=== PATIENT | male | born 1980 | race Caucasian/White ===

== ENCOUNTER 2017-01-20 07:01 | Day surgery (SDC) | payer OTHER ==
[~2017-01-20] VITALS: Ht 180.3 cm; Wt 73.1 kg
[~2017-01-20 07:01] MED LIST: HYDR2TAB29 PO; METH750T2 PO; MORP30CP12 PO; MORP30TA81 PO
[2017-01-20 07:18] VITALS: BP 132/88
[2017-01-20] MEDS ORDERED: LACTATED RINGERS 1,000 ML IV SCH (07:20)
[2017-01-20 08:02] LABS: ASPARTATE AMINO TRANSFERASE 19 U/L (15-37); BLOOD UREA NITROGEN 10 mg/dL (7-18)
[2017-01-20 08:10] LABS: HEMATOCRIT 49.6 % (39.2-51.8); HEMOGLOBIN 16.6 g/dL (13.7-18.0); WHITE BLOOD COUNT 5.9 x10^3/uL (3.4-10)
[2017-01-20] MEDS ORDERED: FENTANYL PF 100 MCG/2ML ONE ×3 (08:21→09:55)
[2017-01-20] MEDS ORDERED: MIDAZOLAM 1 MG/ML, 2ML ONE ×2 (08:21)
[2017-01-20] MEDS ORDERED: EPINEPHRINE 1 MG/ML, 1ML ONE (08:27)
[2017-01-20] MEDS ORDERED: BUPIVACAINE/PF 0.5% ONE (08:27)
[2017-01-20] MEDS ORDERED: METOCLOPRAMIDE 5 MG/ML, 2ML ONE (08:35)
[2017-01-20] MEDS ORDERED: PROPOFOL 10 MG/ML, 20ML ONE (08:35)
[2017-01-20] MEDS ORDERED: KETOROLAC 30 MG/1 ML ONE (08:35)
[2017-01-20] MEDS ORDERED: ROCURONIUM 10 MG/ML ONE (08:35)
[2017-01-20] MEDS ORDERED: ONDANSETRON 2MG/ML, 2ML ONE (08:35)
[2017-01-20] MEDS ORDERED: DEXAMETHASONE 4 MG/ML, 1ML ONE (08:35)
[2017-01-20] MEDS ORDERED: CEFOTETAN 2 GM ONE (08:35)
[2017-01-20] MEDS ORDERED: OXYcodone 5 MG/5 ML ORAL.SOL UDC PO PRN (09:00)
[2017-01-20] MEDS ORDERED: hydrALAzine 20 MG/ML, 1ML IV PRN (09:00)
[2017-01-20] MEDS ORDERED: HYDROmorphone 1 MG/ML, 1ML IV PRN (09:00)
[2017-01-20] MEDS ORDERED: LABETALOL 5MG/ML, 20ML IV PRN (09:00)
[2017-01-20] MEDS ORDERED: ONDANSETRON 2MG/ML, 2ML IVPush PRN ×2 (09:00→10:00)
[2017-01-20] MEDS ORDERED: MIDAZOLAM 1 MG/ML, 2ML IV PRN (09:00)
[2017-01-20] MEDS ORDERED: PROMETHAZINE 25 MG/ML, 1ML IV PRN (09:00)
[2017-01-20] MEDS ORDERED: ACETAMINOPHEN 325 MG TABLET PO PRN (09:00)
[2017-01-20] MEDS ORDERED: MEPERIDINE/PF 25MG/0.5ML IVPush PRN (09:00)
[2017-01-20] MEDS ORDERED: FENTANYL PF 100 MCG/2ML IV PRN (09:00)
[2017-01-20] MEDS ORDERED: HYDROmorphone 2 MG/ML, 1ML ONE (09:03)
[2017-01-20] MEDS ORDERED: ACETAMINOPHEN 650 MG/20.3 ML UDC ONE (09:54)
[2017-01-20] MEDS ORDERED: OXYcodone 5 MG/5 ML ORAL.SOL UDC ONE (09:55)
[2017-01-20] MEDS ORDERED: morphine SULFATE 10 MG/ML, 1ML IVPush PRN (10:00)
== END 2017-01-20 17:30 | disposition home or self-care (01) ==
LOC: OR 07:01
PROVIDERS: ATTEND Surgery
DX: K40.90 Unilateral inguinal hernia, without obstruction or gangrene, not specified as recurrent (principal); K42.0 Umbilical hernia with obstruction, without gangrene
CPT/HCPCS: 36415; 49650; 49653; 80053; 85025; C1781; J0171; J1100; J1170; J1885; J2250; J2405; J2704; J2765; J3010; J3490; J7120; S2900; S0074